=== PATIENT | female | born 1965 | race Caucasian/White ===

== ENCOUNTER 2016-09-25 09:20 | Day surgery (SDC) ==
[2016-09-25] MEDS ORDERED: NS 1,000 ML ONE (10:04)
[2016-09-25] MEDS ORDERED: MYLICON DROPS (DOSE) MISC ONE (11:01)
[2016-09-25] MEDS ORDERED: FENTANYL ONE (11:32)
[2016-09-25] MEDS ORDERED: DIPRIVAN 1% ONE (11:32)
[2016-09-25] MEDS ORDERED: XYLOCAINE-MPF 2% ONE (11:49)
[2016-09-25 12:00] VITALS: BP 122/59
--- NOTE | 2016-09-25 14:42 | OPERATIVE NOTE ---
PROCEDURE DATE: 09/25/2016 PREOPERATIVE DIAGNOSIS: Screening colonoscopy. POSTOPERATIVE DIAGNOSIS: Normal exam other than rare diverticular. PROCEDURE: Colonoscopy. SURGEON: Aayush Greer MD DESCRIPTION OF PROCEDURE: The patient was brought to the GI lab. After satisfactory IV sedation with propofol and anesthesia, standby rectal exam revealed no masses. Colonoscope was introduced without difficulty. Rectum was otherwise normal. There were rare diverticula seen in the sigmoid. Transverse, right colon, and cecum all visualized were within normal limits. The scope was gradually removed. The patient tolerated the procedure well, is recommended for followup in 10 years.
== END 2016-09-25 12:00 | disposition home or self-care (01) ==
LOC: ENDO 09:20
PROVIDERS: ATTEND Surgery
DX: Z12.11 Encounter for screening for malignant neoplasm of colon (principal)
CPT/HCPCS: J3010; J7030